=== PATIENT | female | born 1980 | race Caucasian/White ===

== ENCOUNTER → 2021-05-05 | Outpatient (CLI) | payer OTHER ==
[2021-05-06 08:14] LABS: RHEUMATOID ARTHRITIS FACTOR <10.0 IU/mL (0.0-13.9)
[2021-05-06 09:14] LABS: VITAMIN D, 25-HYDROXY 47.8 ng/mL (30.0-100.0)
== END ==
LOC: LAB 10:05
PROVIDERS: Nurse Practitioner Family
DX: D89.9 Disorder involving the immune mechanism, unspecified (principal); M25.50 Pain in unspecified joint; R76.8 Other specified abnormal immunological findings in serum; R53.83 Other fatigue; M79.10 Myalgia, unspecified site
CPT/HCPCS: 36415; 82550; 82728; 83520; 84439; 84443; 85652; 86140; 86200; 86431

== ENCOUNTER → 2021-06-30 | Outpatient (CLI) | payer OTHER | LOC: EXRD 11:19 | DX: M25.562 Pain in left knee (principal); M25.561 Pain in right knee | CPT/HCPCS: 73564 ==